=== PATIENT | female | born 1960 | race Caucasian/White ===

== ENCOUNTER → 2018-12-14 | Day surgery (SDC) | payer OTHER ==
--- NOTE | 2018-12-14 10:46 | RAD REPORT ---
EXAM DESCRIPTION: US - Breast Vac Assist BX w/US Guid - 12/14/2018 9:54 am CLINICAL HISTORY: N63.20 COMPARISON: Outside ultrasound examination TECHNIQUE: The patient presents for ultrasound-guided biopsy of a approximately 3 centimeter macrolo bulated mass in the lateral left breast. The ultrasound-guided core biopsy procedure, risks and alternatives were discussed with the patient i n detail. After answering all questions, both oral and written consent were obtained. Time out proced ure was performed. The patient had no contraindicated allergy or medication history. The patient was normotensive at the time of the study. Preliminary imaging identified the suspicious mass with preliminary findings matching the outside miguel a ging. The lateral left breast was prepped and draped in the usual sterile fashion. From a lateral inf erior approach, skin and deeper tissues were anesthetized with 1% lidocaine. Under direct sonographic visualization a 14 gauge vacuum assisted core biopsy needle was advanced and placed at the lateral m argin of the mass. There were a total of 2 core biopsies obtained under direct sonographic guidance. Imaging and medially after each core biopsy showed the needle track the pass through the lesion. At the conclusion of the procedure a localization clip was placed under sonographic guidance. Post biopsy imaging showed no hematoma or measurable bleeding within the breast. Hemostasis was obtai robby at the skin site with a sterile bandage placed. Post procedure care and precaution instructions were given to the patient. IMPRESSION: 1. Ultrasound-guided core biopsy was performed of the left breast mass. All obtained mat erial was given to pathology for histologic assessment. 2. Post biopsy localization clip was placed under ultrasound guidance.
== END ==
LOC: FNA 09:26
PROVIDERS: ATTEND Surgery
DX: C50.912 Malignant neoplasm of unspecified site of left female breast (principal); Z17.0 Estrogen receptor positive status [ER+]
CPT/HCPCS: 76942; 88305

== ENCOUNTER 2019-01-11 08:30 | Day surgery (SDC) | payer OTHER ==
--- NOTE | 2019-01-06 08:41 | RAD REPORT ---
EXAM DESCRIPTION: RAD - Chest Pa And Lat (2 Views) - 01/06/2019 8:33 am CLINICAL HISTORY: Preop chest, pending left mastectomy COMPARISON: None. TECHNIQUE: PA and lateral views of the chest were obtained. FINDINGS: The lungs are clear. Heart size is normal and central vasculature is within normal limit s. No pleural effusion or pneumothorax seen. No acute bony finding noted. No aortic abnormality. IMPRESSION: No acute cardiopulmonary process.
[2019-01-06 08:48] LABS: Absolute Lymphocytes (CBC) 1.8 K/uL (0.7-4.9); Absolute Monocytes 0.5 K/uL (0.1-1.3); Absolute Neutrophil 2.3 K/uL (1.8-8.0); Basophils % 0.5 % (0-1.3); Eosinophils % 2.8 % (0-4.4); Hematocrit 38.4 % (36.0-45.0); Lymphocytes % 38.4 % (15.3-44.8); MPV 8.8 fL (7.6-11.3); Monocytes % 10.2 % (3.3-12.3); RBC Red Blood Cell Count 4.28 M/uL (3.86-4.86)
[2019-01-06 08:57] LABS: Potassium 4.1 mmol/L (3.5-5.1)
--- NOTE | 2019-01-06 16:46 | EKG ---
Test Date: 2019-01-06 Test Time: 08:15:29 [employer] Rig Operator: HARVEY MEASUREMENT RESULTS: Intervals: Rate: 72 NH: 208 QRSD: 72 QT: 376 QTc: 411 Stedman: P: 70 NH: 208 QRS: 37 T: 45 INTERPRETIVE STATEMENTS: Normal sinus rhythm Normal ECG No previous ECG available for comparison Electronically Signed On 01-06-19 16:42:59 CDT by Shaka Randolph
[2019-01-11] MEDS ORDERED: Ringers Lactate 1,000 ML IV ONE ×2 (08:57→13:34)
[2019-01-11] MEDS ORDERED: CIPROFLOXACIN 400mg IV 400 MG/200 ML BAG IV ONE (08:57)
[2019-01-11] MEDS ORDERED: METHYLENE BLUE 0.5% 10 ML AMP ONE ×2 (09:31→10:30)
--- NOTE | 2019-01-11 10:28 | RAD REPORT ---
EXAM DESCRIPTION: NM - Lymphoscintigraphy - 01/11/2019 10:04 am CLINICAL HISTORY: LT BREAST LYMPHOSCINTIGRAPHY COMPARISON: Chest Pa And Lat (2 Views) dated 01/06/2019 FINDINGS: Preoperative left breast lymphoscintigraphy was performed. Four separate injections of 0.1 millicurie technetium sulfur colloid in each was placed intradermally about the left nipple. Immediate scintigraphic shows good localization of radiopharmaceutical. IMPRESSION: Successful preoperative left breast lymphoscintigraphy.
[2019-01-11] MEDS ORDERED: PROPOFOL 200 MG/20 ML VIAL IV ONE (10:43)
[2019-01-11] MEDS ORDERED: ROCURONIUM 50 MG/5 ML VIAL IV ONE (10:43)
[2019-01-11] MEDS ORDERED: GLYCOPYRROLATE 0.2 MG/ML SYR ONE (10:44)
[2019-01-11] MEDS ORDERED: FENTANYL CITR 250 MCG/5 ML ONE (10:45)
[2019-01-11] MEDS ORDERED: LIDOCAINE 2% MPF 5 ML VIAL ONE (10:45)
[2019-01-11] MEDS ORDERED: MIDAZOLAM HCL 2 MG/2 ML INJ ONE ×2 (10:46→11:33)
[2019-01-11] MEDS ORDERED: NEOSTIGMINE 1 MG/ML -10 ML VIAL ONE ×2 (10:48→14:00)
[2019-01-11] MEDS ORDERED: ONDANSETRON 4 MG/2 ML VIAL ONE ×2 (10:48→17:12)
--- NOTE | 2019-01-11 14:04 | P.BOP ---
Preoperative diagnosis: left breast invasive ductal carcinoma Postoperative diagnosis: same Primary procedure: LEft mastectomy with sentinel axillary LN bx Rail Director: Cuca Bhagat (Ana Lilia) Estimated blood loss: <100cc Specimen: breast , sentinel LN neg b Dr Atkinson Findings: see ILM sheet. Anesthesia: General Complications: None Drain(s): LILIA drain Transferred to: Recovery Room Condition: Good
[2019-01-11] MEDS: MEPERIDINE HCL 50 MG/ML AMP ONE ×2 (15:09→15:38)
[2019-01-11] MEDS ORDERED: HYDROCODONE/APAP 7.5/325 MG TAB ONE (18:00)
--- NOTE | 2019-01-14 20:52 | DS ---
Date of Discharge: 01/11/2019 Diagnosis: Left breast invasive ductal carcinoma. Procedures: Left mastectomy with sentinel axillary lymph node biopsy. Disposition: Home. Instructions: Activity as tolerated. No heavy lifting. Follow up in my office in 1 week. Call for appointment [phone]. Keep area dry until seen by me again. The patient was taught how to do a LILIA drain drainage and also how to record the output. Medications: See orders. FELIX/MODL Voice ID: [id number] Report ID: [id number]
--- NOTE | 2019-01-15 02:16 | OP ---
Date of Procedure: 01/11/2019 Surgeon: Basil Dolan MD Preoperative Diagnosis: Left breast invasive ductal carcinoma. Postoperative Diagnosis: Left breast invasive ductal carcinoma. Procedures: Left mastectomy with sentinel axillary lymph node biopsy. Anesthesia: General plus local. Drain: LILIA drain x2 #10. Findings: Please see intraoperative lymphatic mapping. Indications: This is the case of a 58-year-old patient, risks and diagnosed with left breast cancer. She was fully explained at length with benefits, alternatives, and risks of different options from lumpectomy, radiation, and sentinel lymph node and axillary dissection, to left modified radical mast ectomy, to left mastectomy and sentinel lymph node and possible axillary dissection. Pros and cons o f each technique were fully explained to the patient with different options and benefits, alternative s, and risks. She has elected, she wants removal of left breast with sentinel axillary lymph node bi opsy, possible axillary dissection with benefits, alternatives, and risks including, but not limited to infection, bleeding, damage to adjacent structures, anesthesia complication, flap failure, seromas , hematomas, chronic pain, chronic numbness, lymphedema, recurrence, CO, even . She also unders tands this may not relieve any symptoms. She might need more than one surgical intervention. She ma y require wound care. She was advised the importance of following up in the future with the oncologi st to determine if she needs radiation or chemotherapy. She signed a consent. The area of concern w as marked by me and the patient in the holding room. This patient came this morning to the radiology suite and had a lymphatic mapping. It was injected, about an hour and a half to 2 hours later, we t ook the patient to the surgery. Description Of Procedure: The patient was brought to the operating room, placed in supine position. Anesthesia was done without complication. Left breast and axillary area were prepped and draped in a sterile fashion. We proceeded to put in the gamma probe to obtain gamma counts. The numbers on th e axillary basin at the end of the sentinel lymph node were, sentinel lymph node #1, skin was 381 in Vivo 463, ex Vivo 1340, ex Vivo 10 seconds 1260, background 0 and a blue lymph node yes. Mcroberts ly mph node #2, skin was 381 in Vivo 420, ex Vivo 688, ex Vivo 10 seconds 720, background 0, blue lymph node no. Once we have the area localized, we made an incision in the axillary area just below the ax illary hairline. We put a gamma probe in that area with numbers described just above. Once we ident ified the area of concern, we proceeded then to send the specimen to the pathologist that confirmed t he sentinel lymph node does not have any evidence of metastatic disease, with the second one too once again shows the same, no evidence of metastatic disease. The area was irrigated. Hemostasis obtain ed. We used hemoclips 1.2 when we removed the lymph node. The rest of axillary area was left intact . There was little bit of fat near this lymph node that was also removed, most likely have lymph nod es. That will be sent for permanent section. The area was irrigated. The area was closed with 3-0 chromic, then approximated with 3-0 chromic again. A LILIA drain was left in that area with a 3-0 nylon attached to it due to the large cavity. The area of the breast is large. She is morbidly obese, __ , so we have delineations of this in advance, sternum, clavicle, inframammary folds, near the area of latissimus dorsi. We made an incision to include the previous biopsy site and the nipple-ar eolar complex in a curvilinear fashion. Once we have this delineated, we proceeded to make an incisi on in that area. I proceeded to elevate the flaps, superior to the clavicle, medial to the sternum, inferior below the inframammary fold, and lateral to the latissimus dorsi. Once we have the flap lizzette vated, I have to pinpoint that we spent a significant amount of time since flaps are very large. Onc e we have that we proceeded then to take the breast and the fascia off the pectoralis muscle in 1 uni t and marked for pathology evaluation. Another LILIA drain was left in that area exiting from another s ite and secured in place with 3-0 nylon. Hemostasis was obtained at all times. This was after irrig ation. At that moment, I proceeded to close the skin with a 3-0 chromic and then the 4-0 PDS in a ru nning fashion. Sponge count and instrument counts were correct. The patient tolerated the procedure well. LILIA connected to bulb suction. The patient was sent to [facility] in stable condition. HM/MODL Voice ID: [id number] Report ID: [id number]
== END 2019-01-11 18:26 | disposition home or self-care (01) ==
LOC: OR 08:30
PROVIDERS: ATTEND Surgery
PROC: 0HTU0ZZ Resection of Left Breast, Open Approach (ICD-10-PCS; principal; 2019-01-11 11:00)
PROC: 07B60ZX Excision of Left Axillary Lymphatic, Open Approach, Diagnostic (ICD-10-PCS; 2019-01-11 11:00)
DX: C50.912 Malignant neoplasm of unspecified site of left female breast (principal); Z17.0 Estrogen receptor positive status [ER+]; I10 Essential (primary) hypertension; E07.9 Disorder of thyroid, unspecified; E66.01 Morbid (severe) obesity due to excess calories; Z68.39 Body mass index [BMI] 39.0-39.9, adult; E78.00 Pure hypercholesterolemia, unspecified; Z88.0 Allergy status to penicillin; Z80.9 Family history of malignant neoplasm, unspecified; Z82.49 Family history of ischemic heart disease and other diseases of the circulatory system
CPT/HCPCS: 36415; 71046; 78195; 80048; 85025; 88305; 88307; 88331; 88333; 88334; 93005; A9541; J0744; J2175; J2250; J2405; J2704; J2710; J3010